=== PATIENT | female | born 1945 | race Caucasian/White ===

== ENCOUNTER → 2017-01-19 | Outpatient (CLI) | payer OTHER ==
[~2017-01-19] MED LIST: ASCO100061 PO; B-COTAB18 PO; CPR500 PO; CYM/30 PO; CYM/60 PO; LEVO75TA PO; MULT-506 PO; OXYC-57 PO; RST/30 PO
--- NOTE | 2017-01-20 07:44 | MAMMOGRAPHY REPORT ---
BILATERAL DIGITAL SCREENING MAMMOGRAM WITH CAD: 01/19/2017 CLINICAL HISTORY: Routine screening. Patient has no complaints. TECHNIQUE: Bilateral CC and MLO views were obtained. Current study was also evaluated with a Compute r Aided Detection (CAD) system. COMPARISON: Comparison is made to exams dated: 01/14/2016 mammogram, 04/30/2015 mammogram, 04/30/2015 aspiration, 04/18/2015 mammogram, 04/18/2015 ultrasound, and 01/16/2015 ultrasound - [facility]. BREAST COMPOSITION: There are scattered areas of fibroglandular density in both breasts. FINDINGS: A 5 mm partially circumscribed and lobulated mass in the 1:00 middle one third of the right breast represents a previously aspirated cyst that has reaccumulated. There are benign coarse calci fications in the left breast. No new suspicious mass, architectural distortion or cluster of microca lcifications is seen. IMPRESSION: ACR BI-RADS CATEGORY 1: NEGATIVE There is no mammographic evidence of malignancy. A 1 year screening mammogram is recommended. The pa tient will receive written notification of the results. Approximately 10% of breast cancers are not detected with mammography. A negative mammographic report should not delay biopsy if a clinically suggestive mass is present. Angely Reyes M.D. ay/:01/19/2017 15:37:45 [employer]aning [employer] Washing Equipment Operator: Jennie Ramirez, [facility] letter sent: Normal 1/2 BI-RADS Code: ACR BI-RADS Category 1: Negative
== END | disposition home or self-care (01) ==
LOC: C.MAMM 09:57
PROVIDERS: ATTEND Family Medicine
DX: Z12.31 Encounter for screening mammogram for malignant neoplasm of breast (principal)

== ENCOUNTER → 2017-01-25 | Outpatient (CLI) | payer OTHER ==
--- NOTE | 2017-01-25 15:41 | DIAGNOSTIC IMAGING REPORT ---
MRI OF THE SACRUM WITHOUT IV CONTRAST CLINICAL HISTORY: Sacral arachnoid cyst. Chronic back and foot pain. COMPARISON STUDY: Prior MRI examinations of the pelvis, most recently dated 07/24/2015. CT scan of the pelvis dated 02/01/2014. TECHNIQUE: MRI of the sacrum is performed using various T1 and T2-weighted sequences in the axial, sagittal, and coronal planes. IV contrast was not administered for this examination. FINDINGS: Marrow signal intensity is heterogeneous. There is significant fatty marrow replacement identified. There is no clear MRI evidence of fracture or marrow replacement process. There are postoperative changes from laminectomy involving the lumbosacral spine. Tarlov cysts seen on earlier prior examinations have been removed. No Tarlov cyst is identified on today's examination. Mild dural ectasia is incidentally noted at the S2 to S3 level. Postoperative scarring is suggested around the sacral central canal. Postoperative change is seen in the posterior soft tissues. There is free fluid in the pelvis. IMPRESSION: 1. No acute bony abnormality is identified. 2. Postoperative change as above. No discrete sacral arachnoid cyst/Tarlov cyst is seen. Dictated: 01/25/2017 2:41 PM Transcribed: 01/25/2017 3:41 PM Elizabeth Electronically signed by: Bradly Sweeney M.D. 01/25/2017 3:57 PM Dictated Date/Time: 01/25/2017 2:41 PM DEBRA
== END | disposition home or self-care (01) ==
LOC: C.MRI 13:06
PROVIDERS: ATTEND Neurological Surgery
DX: G96.19 Other disorders of meninges, not elsewhere classified (principal)

== ENCOUNTER → 2018-01-21 | Outpatient (CLI) | payer OTHER ==
--- NOTE | 2018-01-21 15:28 | MAMMOGRAPHY REPORT ---
BILATERAL DIGITAL SCREENING MAMMOGRAM TOMOSYNTHESIS WITH CAD: 01/21/2018 CLINICAL HISTORY: Routine screening. Patient has no complaints. TECHNIQUE: The study was acquired using full field digital technology and interpreted from soft copy. Breast tomosynthesis in addition to standard 2D mammography was performed. Current study was also ev aluated with a Computer Aided Detection (CAD) system. COMPARISON: Comparison is made to exams dated: 01/19/2017 mammogram, 01/14/2016 mammogram, 04/30/2015 ma mmogram, 04/18/2015 mammogram, 01/16/2015 mammogram, and 01/08/2015 mammogram - [facility]. BREAST COMPOSITION: There are scattered areas of fibroglandular density in both breasts. FINDINGS: No suspicious masses, calcifications, or areas of architectural distortion are noted in either breast . There has been no significant interval change compared to prior exams. Grouped coarse benign-appea ring calcifications in the left medial breast at approximately 9:00 are stable compared to prior exam s. IMPRESSION: ACR BI-RADS CATEGORY 2: BENIGN There is no mammographic evidence of malignancy. A 1 year screening mammogram is recommended.( [id number]) The patient will receive written notification of the results. Some breast cancers are not detected with mammography. A negative mammographic report should not fernando y biopsy if a clinically suggestive mass is present. Kaylene Gilliam M.D. ah/:01/21/2018 14:19:22 Penciller: RT Wagner(Arcadio)(M), [facility] letter sent: Normal 1/2 BI-RADS Code: ACR BI-RADS Category 2: Benign
== END | disposition home or self-care (01) ==
LOC: C.MAMM 13:55
PROVIDERS: ATTEND Nurse Practitioner Family
DX: Z12.31 Encounter for screening mammogram for malignant neoplasm of breast (principal)